=== PATIENT | male | born 1955 | race Caucasian/White ===

== ENCOUNTER 2018-05-20 08:13 | Day surgery (SDC) | payer BC ==
[2018-05-16 15:43] VITALS: BP 134/79
--- NOTE | 2018-05-16 15:49 | PCM.EKG ---
[facility] Test Date: 2018-05-16 Test Time: 15:43:28 Pat Name: TOM CHACKO Department: Patient ID: [facility]-[id number] Room: Gender: M Otolaryngology Nurse: RT : 1955 Requested By: CHINA ECHAVARRIA Order Number: [id number] Reading MD: Wisam Hernandez Measurements Intervals [place] Rate: 65 P: 59 HI: 126 QRS: 5 QRSD: 108 T: 24 QT: 398 QTc: 413 Interpretive Statements Sinus rhythm Normal ECG No previous ECG available for comparison Electronically Signed On 05-17-2018 8:40:34 PASTRY ARTIST by Wisam Hernandez Please click the below link to view image of tracing.
[2018-05-16 16:56] LABS: BASOPHIL % 0.7 % (0.0-0.2); EOSINOPHIL # 0.2 10^3/uL (0.0-0.2); EOSINOPHIL % 2.8 % (0.0-5.0); LYMPHOCYTES # 1.5 10^3/uL (1.0-4.8); LYMPHOCYTES % 25.5 % (24.0-44.0); MEAN CELL HGB 31.3 pg (26-34); MEAN CELL HGB CONCENTRATION 33.9 g/dL (33-37); MEAN CORP VOLUME 92.2 fL (78-100); MEAN PLATELET VOLUME 10.5 fL (7.8-11.0); MONOCYTES # 0.6 10^3/uL (0.3-0.8); MONOCYTES % 9.5 % (5.0-12.0); NEUTROPHIL # 3.7 10^3/uL (1.8-7.7); NEUTROPHILS % 61.2 % (41.0-85.0); RED CELL DISTRIBUTION WIDTH 13.2 % (11.5-14.5)
[2018-05-16 17:18] LABS: CARBON DIOXIDE 22.1 mmol/L (20.0-32)
[2018-05-20] VITALS (8 sets, daily range): BP systolic 123–142; BP diastolic 72–91
[~2018-05-20] VITALS: Ht 177.8 cm; Wt 101.6 kg
[~2018-05-20 08:13] MED LIST: ALPR0.5T6 PO; APRE30TA2 PO; ASPI-484 PO; DECADRON ONE; DICY10CA3 PO; DIPRIVAN IV ONE; LACTATED RINGERS 1,000 ML ONE; LASIX ONE; LIDOCAINE 2% VIAL ONE; LISI1TAB5 PO; PANT40TA5 PO; PRAV80TA2 PO; SUBLIMAZE ONE; ZOFRAN ONE
[2018-05-20] MEDS: LACTATED RINGERS 1,000 ML IV SCH ×2 (08:28→10:28)
[2018-05-20] MEDS ORDERED: LACTATED RINGERS 1,000 ML ONE (10:16)
[2018-05-20] MEDS ORDERED: TAMS0.4C2 PO (10:19)
[2018-05-20] MEDS ORDERED: TRAM50TA PO (10:19)
[2018-05-20] MEDS ORDERED: EPHEDRINE SULFATE ONE ×2 (10:22→10:23)
[2018-05-20] MEDS ORDERED: NORCO 7.5MG PO PRN (10:30)
[2018-05-20] MEDS ORDERED: LASIX IV SCH (10:30)
[2018-05-20] MEDS ORDERED: LACTATED RINGERS 1,000 ML IV SCH (10:30)
--- NOTE | 2018-05-20 10:34 | OPH ---
DATE OF SURGERY: 05/20/2018 PREOPERATIVE DIAGNOSIS: Left renal calculi. FINAL DIAGNOSIS: Left renal calculi. PROCEDURE: Left ESWL. DESCRIPTION OF PROCEDURE: The patient was brought to the lithotripsy room, was put in supine position on the lithotripsy table. A left preop renal ultrasound was initially performed which revealed a stone in the lower pole of the left kidney measuring 9.6 mm in diameter and another stone in the middle pole measuring 5.8 mm in diameter. There is no evidence of hydronephrosis, no cysts or obstruction noted. After the patient was given an LMA general anesthesia and after localization of the stone with the use of an ultrasound and a C-arm fluoroscopy, a left ESWL was done using a [employer] Compact Delta II Lithotripter. A total of 2500 shockwaves were delivered to the stones in different locations in the left kidney under ultrasound guidance. After fragmentation of the stone as noted in the ultrasound, the procedure was terminated. The patient was awakened, was transferred to the recovery room in stable condition. Angel Guerrero MD DR: NAHUM/vinod JOB# [id number]
[2018-05-20] MEDS ORDERED: LASIX IV ONE (11:00)
== END 2018-05-20 11:32 | disposition home or self-care (01) ==
LOC: SDC 08:13 → EDBD 11:15 → SDC 11:32
PROVIDERS: ATTEND Urology
DX: N20.0 Calculus of kidney (principal); I10 Essential (primary) hypertension; I25.2 Old myocardial infarction; M19.90 Unspecified osteoarthritis, unspecified site; E66.9 Obesity, unspecified; Z68.32 Body mass index [BMI] 32.0-32.9, adult; Z95.5 Presence of coronary angioplasty implant and graft; Z72.89 Other problems related to lifestyle; Z79.899 Other long term (current) drug therapy; Z98.890 Other specified postprocedural states; Z87.891 Personal history of nicotine dependence; Z83.3 Family history of diabetes mellitus; Z80.3 Family history of malignant neoplasm of breast
CPT/HCPCS: 36415; 50590; 80051; 82565; 84520; 85025; 85610; 85730; 93005; J1100; J2001; J2405; J3010; J3490 ×3; J7120 ×2; J1940

== ENCOUNTER 2018-07-01 07:48 | Day surgery (SDC) | payer BC ==
[2018-06-30 13:15] LABS: BASOPHIL # 0.1 10^3/uL (0.0-0.1); BASOPHIL % 0.6 % (0.0-0.2); EOSINOPHIL # 0.2 10^3/uL (0.0-0.2); EOSINOPHIL % 3.1 % (0.0-5.0); HEMOGLOBIN 15.9 g/dL (13.9-16.3); LYMPHOCYTES # 1.2 10^3/uL (1.0-4.8); LYMPHOCYTES % 15.8 % (24.0-44.0); MEAN CELL HGB 31.5 pg (26-34); MEAN CORP VOLUME 92.5 fL (78-100); MEAN PLATELET VOLUME 10.2 fL (7.8-11.0); MONOCYTES # 0.9 10^3/uL (0.3-0.8); MONOCYTES % 11.5 % (5.0-12.0); NEUTROPHIL # 5.3 10^3/uL (1.8-7.7); NEUTROPHILS % 68.6 % (41.0-85.0); WHITE BLOOD CELL 7.7 10^3/uL (4.5-11.0)
[2018-06-30 13:29] LABS: CALCIUM 9.1 mg/dL (8.4-10.5); CARBON DIOXIDE 28.9 mmol/L (20.0-32)
[~2018-07-01] VITALS: Ht 177.8 cm; Wt 101.6 kg
[2018-07-01] VITALS (8 sets, daily range): BP systolic 127–143; BP diastolic 73–93
[~2018-07-01 07:48] MED LIST changes: +DILAUDID IV PRN; +LACTATED RINGERS 1,000 ML IV SCH; +LASIX IV ONE; -LIDOCAINE 2% VIAL ONE; +SUBLIMAZE IV PRN; +TAMS0.4C2 PO; +TORADOL ONE; +TRAM50TA PO; +VERSED ONE; +ZOFRAN IV PRN
[2018-07-01] MEDS ORDERED: NORCO 7.5MG PO PRN (10:00)
[2018-07-01] MEDS ORDERED: LASIX IV SCH (10:00)
[2018-07-01] MEDS ORDERED: LACTATED RINGERS 1,000 ML IV SCH (10:00)
--- NOTE | 2018-07-01 10:57 | OPH ---
DATE OF SURGERY: 07/01/2018 PREOPERATIVE DIAGNOSIS: Right renal calculi. FINAL DIAGNOSIS: Right renal calculi. PROCEDURE: Right ESWL. DESCRIPTION OF PROCEDURE: The patient was brought to the lithotripsy room and was put in supine position on the lithotripsy table. A right preop renal ultrasound was initially performed, which revealed two stones in the right kidney, one in the upper pole measuring 6.3 mm in diameter and another one in the lower pole measuring 5.6 mm in diameter. There was no evidence of hydronephrosis, no cysts or masses noted. After the patient was given an LMA general anesthesia and after localization of the stone with the use of ultrasound and fluoroscopy, right ESWL was then performed using a [employer] Compact Delta II Lithotripter. A total of 1500 shockwaves were delivered to the stones in the right kidney under ultrasound guidance. After fragmentation of the stone as noted in the ultrasound, the procedure was terminated. The patient was awakened, was transferred to the recovery room in stable condition. Angel Guerrero MD DR: NAHUM/vinod JOB# [id number]
== END 2018-07-01 10:33 | disposition home or self-care (01) ==
LOC: SDC 07:48
PROVIDERS: ATTEND Urology
DX: N20.0 Calculus of kidney (principal); Z79.899 Other long term (current) drug therapy; Z79.4 Long term (current) use of insulin; I13.0 Hypertensive heart and chronic kidney disease with heart failure and stage 1 through stage 4 chronic kidney disease, or unspecified chronic kidney disease; E11.22 Type 2 diabetes mellitus with diabetic chronic kidney disease; N18.9 Chronic kidney disease, unspecified; I50.9 Heart failure, unspecified; Z79.84 Long term (current) use of oral hypoglycemic drugs; Z98.890 Other specified postprocedural states; Z95.0 Presence of cardiac pacemaker; K21.9 Gastro-esophageal reflux disease without esophagitis; E78.00 Pure hypercholesterolemia, unspecified
CPT/HCPCS: 36415; 50590; 80048; 85025; 85610; 85730; J1100; J1885; J2250; J2405; J3010; J3490; J7120; J1940